=== PATIENT | female | born 1985 | race Caucasian/White ===

== ENCOUNTER 2020-08-21 19:52 | Emergency (ER) | payer SELFPAY ==
[~2020-08-21] VITALS: Ht 175.3 cm; Wt 69.0 kg
[2020-08-21] MEDS ORDERED: MORPHINE SULFATE 10 MG/ML CPJ IV ONE (23:00)
[2020-08-21 23:03] LABS: BASOPHILS % 0.7 % (0.0-2.0); EOSINOPHILS % 0.1 % (0.0-5.0); HEMATOCRIT. 36.7 % (36.0-48.0); HEMOGLOBIN. 12.4 g/dL (12.0-16.0); LYMPHOCYTES % 13.6 % (20.0-50.0); MEAN CORPUSCULAR HEMOGLOBIN 26.3 pg (28.0-32.0); MEAN CORPUSCULAR VOLUME 77.8 fL (81.0-99.0); MEAN PLATELET VOLUME 10.7 fl (7.4-10.4); MONOCYTES % 5.5 % (2.0-8.0); NEUTROPHILS % 80.1 % (40.0-76.0); PLATELET 230 x1000/uL (130-400); RED BLOOD CELL COUNT 4.72 mill/uL (4.2-5.4); RED CELL DISTRIBUTION WIDTH 17.7 % (11.6-14.6)
[2020-08-21 23:09] LABS: CHLORIDE 107 mEq/L (98-107)
[2020-08-21 23:18] LABS: HCG SCREEN NEGATIVE
[2020-08-21 23:20] LABS: B-HCG QUANTITATIVE < 1 mIU/mL (<3)
[2020-08-22] MEDS ORDERED: HYDROCODONE/ACETAMINOPHEN 5/325MG TABLET PO ONE (01:45)
[2020-08-22] MEDS ORDERED: KETOROLAC 30MG/ML VIAL IM ONE (03:15)
[2020-08-22 03:30] VITALS: BP 126/77
== END 2020-08-22 03:30 | disposition home or self-care (01) ==
LOC: ER 19:52
DX: N94.6 Dysmenorrhea, unspecified (principal); N80.9 Endometriosis, unspecified; J45.909 Unspecified asthma, uncomplicated
CPT/HCPCS: 36415; 76830; 76856; 80053; 84702; 84703; 85025; 86850; 86900; 86901; 93005; 96374; 99285; J1885; J2270

== ENCOUNTER 2021-11-19 18:25 | Emergency (ER) | payer BC ==
[~2021-11-19] VITALS: Ht 175.3 cm; Wt 120.1 kg
[2021-11-19 18:45] VITALS: BP 144/79
[2021-11-19] MEDS ORDERED: HYDROCODONE/ACETAMINOPHEN 5/325MG TABLET PO ONE (19:15)
[2021-11-19] MEDS ORDERED: ONDANSETRON 4MG ODT PO ONE (19:15)
[2021-11-19] MEDS ORDERED: IBUP-2030 MT (20:28)
[2021-11-19] MEDS ORDERED: TRAM50TA3 MT (20:28)
== END 2021-11-19 21:27 | disposition home or self-care (01) ==
LOC: ER 18:25
DX: M25.462 Effusion, left knee (principal); G89.29 Other chronic pain; M25.562 Pain in left knee; R73.03 Prediabetes; J45.909 Unspecified asthma, uncomplicated; Z90.49 Acquired absence of other specified parts of digestive tract
CPT/HCPCS: 73562; 93971; 99284; L1830; Q0162

== ENCOUNTER 2022-05-23 16:04 | Emergency (ER) | payer BC ==
[~2022-05-23] VITALS: Ht 175.3 cm; Wt 123.0 kg
[~2022-05-23 16:04] MED LIST: IBUP-2030 MT; TRAM50TA3 MT
[2022-05-23] MEDS ORDERED: KETOROLAC 30MG/ML VIAL IV STA (18:06)
[2022-05-23] MEDS ORDERED: SODIUM CHLORIDE 0.9% 1,000 ML IV ONE (18:15)
[2022-05-23] MEDS ORDERED: METOCLOPRAMIDE HCL 10MG/2ML VIAL IV ONE (18:15)
[2022-05-23] MEDS ORDERED: DIPHENHYDRAMINE 50MG/ML VIAL IV ONE (18:15)
[2022-05-23 19:20] LABS: BASOPHILS % 0.6 % (0.0-2.0); EOSINOPHILS % 1.8 % (0.0-5.0); HEMATOCRIT. 40.2 % (36.0-48.0); HEMOGLOBIN. 13.5 g/dL (12.0-16.0); LYMPHOCYTES % 30.7 % (20.0-50.0); MEAN CORPUSCULAR HEMOGLOBIN 27.5 pg (28.0-32.0); MEAN CORPUSCULAR VOLUME 82.1 fL (81.0-99.0); NEUTROPHILS % 58.9 % (40.0-76.0); RED CELL DISTRIBUTION WIDTH 15.7 % (11.6-14.6)
[2022-05-23 19:38] LABS: CHLORIDE 109 mEq/L (98-107)
[2022-05-23 19:41] LABS: HCG SCREEN NEGATIVE
[2022-05-23] MEDS ORDERED: IBUP-2028 MT (20:06)
[2022-05-23 20:25] LABS: PLATELET 266 x1000/uL (130-400)
[2022-05-23 21:00] VITALS: BP 115/53
== END 2022-05-23 21:30 | disposition home or self-care (01) ==
LOC: ER 16:04
DX: R51.9 Headache, unspecified (principal); J45.909 Unspecified asthma, uncomplicated; E28.2 Polycystic ovarian syndrome; Z90.49 Acquired absence of other specified parts of digestive tract; Z98.890 Other specified postprocedural states
CPT/HCPCS: 36415; 80053; 84703; 85025; 93005; 96361; 96374; 96375; 99284; J1200; J1885; J2765; J7030

== ENCOUNTER 2023-11-03 15:17 | Emergency (ER) | payer BC ==
[~2023-11-03] VITALS: Ht 177.8 cm; Wt 105.0 kg
[~2023-11-03 15:17] MED LIST changes: +IBUP-2028 MT
[2023-11-03 15:28] VITALS: BP 150/77; PULSE 94; RESP 16; TEMP 98.7; O2SAT 100
[2023-11-03 16:09] LABS: BASOPHILS % 0.4 % (0.0-2.0); EOSINOPHILS % 0.3 % (0.0-5.0); HEMATOCRIT. 33.9 % (36.0-48.0); HEMOGLOBIN. 11.4 g/dL (12.0-16.0); LYMPHOCYTES % 29.6 % (20.0-50.0); MEAN CORPUSCULAR HEMOGLOBIN 27.2 pg (28.0-32.0); MEAN CORPUSCULAR HGB CONC 33.5 g/dL (31.0-37.0); MEAN CORPUSCULAR VOLUME 81.3 fL (81.0-99.0); MEAN PLATELET VOLUME 9.8 fl (7.4-10.4); MONOCYTES % 4.6 % (2.0-8.0); NEUTROPHILS % 65.1 % (40.0-76.0); PLATELET 288 x1000/uL (130-400); RED BLOOD CELL COUNT 4.17 mill/uL (4.2-5.4); RED CELL DISTRIBUTION WIDTH 14.6 % (11.6-14.6); WHITE BLOOD COUNT 8.5 x1000/uL (4.5-11.0)
[2023-11-03 16:18] LABS: HCG SCREEN NEGATIVE
[2023-11-03 16:21] LABS: ALANINE AMINOTRANSFERASE 16 IU/L (10-49); ALBUMIN 4.3 g/dL (3.2-4.8); ASPARTATE AMINOTRANSFERASE 12 IU/L (<34); BILIRUBIN TOTAL 0.3 mg/dL (0.1-1.0); CALCIUM 9.2 mg/dL (8.7-10.4); CARBON DIOXIDE 25 mEq/L (21-32); CHLORIDE 106 mEq/L (98-107); CREATININE 0.6 mg/dL (0.6-1.0); GLUCOSE 100 mg/dL (70-105); POTASSIUM 4.2 mEq/L (3.5-5.1); PROTEIN TOTAL 7.6 g/dL (6.0-8.3); SODIUM 138 mEq/L (136-145); UREA NITROGEN BLOOD 7 mg/dL (9-23)
== END 2023-11-03 18:13 | disposition home or self-care (01) ==
LOC: ER 15:17
DX: N94.6 Dysmenorrhea, unspecified (principal); N80.8 Other endometriosis; J45.909 Unspecified asthma, uncomplicated; Z90.710 Acquired absence of both cervix and uterus; Z98.890 Other specified postprocedural states
CPT/HCPCS: 36415; 80053; 84703; 85025; 86850; 86900; 99283